=== PATIENT | female | born 1990 | race Caucasian/White ===

== ENCOUNTER 2016-06-14 17:57 | Outpatient (CLI) | payer OTHER ==
--- NOTE | 2016-06-14 18:38 | DIAGNOSTIC IMAGING REPORT ---
PROCEDURE: US COMPLETE PELVIC W/TRANSVAG INDICATION: PELVIC PX, initial encounter TECHNIQUE: Transabdominal and endovaginal barraza scale and color Doppler sonographic images of the female pelvis were obtained. COMPARISON: None. FINDINGS: TRANSABDOMINAL SCANS: Normal kidneys. TRANSVAGINAL SCANS: Anteverted the uterus measures 7.5 x 3.4 x 5.7 cm. Normal myometrium. Normal endometrium measures 8.5 mm. Left ovary measures 4.5 x 2.4 x 2.7 cm with a 2.5 cm hemorrhagic cyst. Right ovary measures 4.2 x 2.7 x 4.1 cm with a 2.2 cm hemorrhagic cyst. There is vascular flow to both ovaries. Minimal free fluid the cul-de-sac. IMPRESSION: 1. Bilateral ovarian hemorrhagic cysts with minimal free fluid in the cul-de-sac 2. Results discussed with TAURUS Peñaloza
== END 2016-06-14 23:00 ==
LOC: US SRH 17:57
DX: N83.202 Unspecified ovarian cyst, left side (principal); N83.201 Unspecified ovarian cyst, right side